=== PATIENT | male | born 1970 | race Caucasian/White ===

== ENCOUNTER 2020-05-11 12:48 | Inpatient (IN) | payer MEDICAID, SELFPAY ==
[~2020-05-11] VITALS: Ht 188 cm; Wt 80.7 kg
[2020-05-11 12:48] VITALS: BP_SYST 129
[2020-05-11 13:26] LABS: BASOPHILS # (AUTO) 0.1 K/uL (0.0-0.2); BASOPHILS % (AUTO) 0.3 % (0.0-2.0); EOSINOPHILS # (AUTO) 0.1 K/uL (0.0-0.4); EOSINOPHILS % (AUTO) 0.5 % (0.0-4.0); HEMATOCRIT 33.6 % (36-54); HEMOGLOBIN 11.1 g/dL (14.0-18.0); LYMPHOCYTES # (AUTO) 1.9 K/uL (1.0-5.5); LYMPHOCYTES % (AUTO) 8.6 % (20.5-51.5); MEAN CORPUSCULAR HEMOGLOBIN 27 pg (27-31); MEAN CORPUSCULAR HGB CONC 33 % (32-36); MEAN CORPUSCULAR VOLUME 82 fL (79.0-98.0); MONOCYTES # (AUTO) 1.2 K/uL (0.0-1.0); MONOCYTES % (AUTO) 5.5 % (1.7-9.3); NEUTROPHILS % (AUTO) 85.1 % (40.0-70.0); RED BLOOD CELL COUNT(AUTO) 4.09 MIL/uL (4.2-6.2); RED CELL DISTRIBUTION WIDTH 17.4 % (9.0-15.0); WHITE BLOOD COUNT (AUTO) 22.3 K/uL (4.8-10.8)
[2020-05-11 13:36] LABS: PLATELET COUNT (AUTO) 439 K/uL (130-430)
[2020-05-11 13:41] LABS: CALCIUM 8.2 mg/dL (8.4-11.0); CREATININE 0.99 mg/dL (0.55-1.30); POTASSIUM 4.1 mmol/L (3.5-5.1)
[2020-05-11 13:45] LABS: INR 1.2 (0.80-1.20); PROTHROMBIN TIME 12.3 SECS (9.5-12.5)
[2020-05-11 13:55] LABS: ALBUMIN 2.1 g/dL (3.4-4.8); TOTAL BILIRUBIN 1.1 mg/dL (0.0-1.0)
[2020-05-11] MEDS ORDERED: ONDANSETRON HCL 4 MG/2 ML VIAL IVP ONE (14:45)
[2020-05-11] MEDS ORDERED: MORPHINE 4 MG/ML INJ. SYRINGE IVP ONE (14:45)
[2020-05-11] MEDS ORDERED: PIPERACILLIN/TAZO 3.375 GM in NS 50 ML IV ONE (15:30)
[2020-05-11] MEDS ORDERED: ONDANSETRON HCL 4 MG/2 ML VIAL IVP PRN (16:00)
[2020-05-11] MEDS ORDERED: ZOLPIDEM TARTRATE 5 MG TABLET PO PRN (16:00)
[2020-05-11] MEDS ORDERED: DOCUSATE SODIUM 100 MG CAPSULE PO PRN (16:00)
[2020-05-11] MEDS ORDERED: MUPIROCIN 2% TOPICAL OINTMENT 22 GM NS PRN (16:00)
[2020-05-11] MEDS ORDERED: MAGNESIUM SULFATE 50 ML IV PRN (16:00)
[2020-05-11] MEDS ORDERED: ACETAMINOPHEN 325 MG TABLET PO PRN (16:00)
[2020-05-11] MEDS ORDERED: NALOXONE HCL 0.4 MG/ML AMP (NARCAN) IVP PRN ×2 (16:00)
[2020-05-11] MEDS ORDERED: POTASSIUM CHLORIDE 20 MEQ TAB.PRT.SR PO PRN (16:00)
[2020-05-11 16:52] VITALS: BP_SYST 139
[2020-05-11] MEDS: NACL 0.9% 1,000 ML IV SCH (16:52)
[2020-05-11] MEDS ORDERED: PIPERACILLIN/TAZOBACTAM 3.375 GM/VIAL (ZOSYN) IV ONE (17:00)
[2020-05-11] MEDS: PIPERACILLIN/TAZO 4.5GM/DEX-IS 100 ML IV SCH ×2 (17:00→22:00)
[2020-05-11 18:45] LABS: BARBITURATE, URINE NEGATIVE (NEG <=200); BENZODIAZEPINE, URINE NEGATIVE (NEG <=150); CANNABINOID, URINE NEGATIVE (NEG <=50); COCAINE, URINE NEGATIVE (NEG <=150); METHAMPHETAMINES SCREEN,URINE NEGATIVE (NEG <=500); OPIATE, URINE POSITIVE (NEG <=100); PHENCYCLIDINE SCREEN,URINE NEGATIVE (NEG <=25); UR TRICYCLIC ANTIDEPRESSANTS NEGATIVE (NEG <=300); URINE AMPHETAMINE NEGATIVE (NEG <=500); URINE METHADONE NEGATIVE (NEG <=200); URINE OXYCODONE SCREEN NEGATIVE (NEG <=100); URINE PROPOXYPHENE SCREEN NEGATIVE (NEG <=300)
[2020-05-11 20:00] VITALS: BP_SYST 125
[2020-05-11] MEDS: FLUCONAZOLE 200 mg/ NS 100 ML IV SCH (20:19)
[2020-05-11] MEDS: HEPARIN SODIUM,PORCINE 5,000 UNITS/ML VIAL SUBCUT SCH (20:28)
[2020-05-11] MEDS: LORazepam 2 MG/ML VIAL IVP PRN (22:09)
[2020-05-11] MEDS: MORPHINE 2 MG/ML INJ. SYRINGE IVP PRN (22:20)
[2020-05-12] VITALS: BP_SYST 100
[2020-05-12 00:59] VITALS: BP_SYST 100
[2020-05-12] MEDS: LORazepam 2 MG/ML VIAL IVP PRN (02:59)
[2020-05-12] MEDS: MORPHINE 2 MG/ML INJ. SYRINGE IVP PRN ×3 (03:03→21:49)
[2020-05-12] MEDS: NACL 0.9% 1,000 ML IV SCH ×3 (03:03→22:00)
[2020-05-12] MEDS: PIPERACILLIN/TAZO 4.5GM/DEX-IS 100 ML IV SCH ×3 (06:10→22:17)
[2020-05-12 07:03] LABS: BASOPHILS # (AUTO) 0.1 K/uL (0.0-0.2); BASOPHILS % (AUTO) 0.4 % (0.0-2.0); EOSINOPHILS # (AUTO) 0.1 K/uL (0.0-0.4); EOSINOPHILS % (AUTO) 0.5 % (0.0-4.0); HEMATOCRIT 32.4 % (36-54); HEMOGLOBIN 10.7 g/dL (14.0-18.0); LYMPHOCYTES # (AUTO) 1.8 K/uL (1.0-5.5); LYMPHOCYTES % (AUTO) 8.8 % (20.5-51.5); MEAN CORPUSCULAR HEMOGLOBIN 27 pg (27-31); MEAN CORPUSCULAR HGB CONC 33 % (32-36); MEAN CORPUSCULAR VOLUME 82 fL (79.0-98.0); MONOCYTES # (AUTO) 1.1 K/uL (0.0-1.0); MONOCYTES % (AUTO) 5.5 % (1.7-9.3); NEUTROPHILS # (AUTO) 17.6 K/uL (1.8-7.7); NEUTROPHILS % (AUTO) 84.8 % (40.0-70.0); PLATELET COUNT (AUTO) 449 K/uL (130-430); RED BLOOD CELL COUNT(AUTO) 3.93 MIL/uL (4.2-6.2); RED CELL DISTRIBUTION WIDTH 17.5 % (9.0-15.0); WHITE BLOOD COUNT (AUTO) 20.8 K/uL (4.8-10.8)
[2020-05-12 07:43] LABS: CALCIUM 7.9 mg/dL (8.4-11.0); CREATININE 1.13 mg/dL (0.55-1.30); POTASSIUM 5.1 mmol/L (3.5-5.1)
[2020-05-12] MEDS ORDERED: CYCLOBENZAPRINE HCL 10 MG TABLET (FLEXERIL) PO ONE (08:30)
[2020-05-12] MEDS ORDERED: DIATR MEGLU/DIATRIZ SOD 30 ML SOLUTION PO ONE (08:39)
[2020-05-12 08:57] VITALS: BP_SYST 119
[2020-05-12] MEDS: HEPARIN SODIUM,PORCINE 5,000 UNITS/ML VIAL SUBCUT SCH ×2 (09:06→21:50)
[2020-05-12] MEDS ORDERED: IOHEXOL 350 mgI/mL, 150 ML INFUS..BTL IV ONE (10:34)
[2020-05-12 12:15] VITALS: BP_SYST 130
[2020-05-12 16:04] VITALS: BP_SYST 126
[2020-05-12] MEDS: FLUCONAZOLE 200 mg/ NS 100 ML IV SCH (21:47)
[2020-05-13] MEDS: PIPERACILLIN/TAZO 4.5GM/DEX-IS 100 ML IV SCH ×3 (05:49→21:23)
[2020-05-13 07:20] LABS: CALCIUM 8.2 mg/dL (8.4-11.0); CREATININE 1.2 mg/dL (0.55-1.30); POTASSIUM 4.7 mmol/L (3.5-5.1)
[2020-05-13 07:22] LABS: BASOPHILS # (AUTO) 0.1 K/uL (0.0-0.2); BASOPHILS % (AUTO) 0.4 % (0.0-2.0); EOSINOPHILS # (AUTO) 0.1 K/uL (0.0-0.4); EOSINOPHILS % (AUTO) 0.4 % (0.0-4.0); HEMATOCRIT 34.6 % (36-54); LYMPHOCYTES % (AUTO) 8.9 % (20.5-51.5); MEAN CORPUSCULAR HEMOGLOBIN 27 pg (27-31); MEAN CORPUSCULAR HGB CONC 32 % (32-36); MEAN CORPUSCULAR VOLUME 84 fL (79.0-98.0); MONOCYTES # (AUTO) 1.3 K/uL (0.0-1.0); MONOCYTES % (AUTO) 5.6 % (1.7-9.3); NEUTROPHILS # (AUTO) 19.2 K/uL (1.8-7.7); NEUTROPHILS % (AUTO) 84.7 % (40.0-70.0); PLATELET COUNT (AUTO) 588 K/uL (130-430); RED BLOOD CELL COUNT(AUTO) 4.13 MIL/uL (4.2-6.2); RED CELL DISTRIBUTION WIDTH 17.7 % (9.0-15.0); WHITE BLOOD COUNT (AUTO) 22.7 K/uL (4.8-10.8)
[2020-05-13] MEDS: NACL 0.9% 1,000 ML IV SCH ×2 (08:30→17:54)
[2020-05-13] MEDS: LORazepam 2 MG/ML VIAL IVP PRN (08:33)
[2020-05-13 08:34] VITALS: BP_SYST 134
[2020-05-13] MEDS: HEPARIN SODIUM,PORCINE 5,000 UNITS/ML VIAL SUBCUT SCH ×2 (10:05→21:22)
[2020-05-13 12:05] VITALS: BP_SYST 125
[2020-05-13 16:16] VITALS: BP_SYST 148
[2020-05-13] MEDS: FLUCONAZOLE 200 mg/ NS 100 ML IV SCH (17:54)
[2020-05-13] MEDS: MORPHINE 2 MG/ML INJ. SYRINGE IVP PRN (18:12)
[2020-05-13 20:00] VITALS: BP_SYST 145
[2020-05-14] MEDS: NACL 0.9% 1,000 ML IV SCH ×2 (04:00→14:15)
[2020-05-14] MEDS: PIPERACILLIN/TAZO 4.5GM/DEX-IS 100 ML IV SCH ×3 (06:07→21:26)
[2020-05-14 06:38] LABS: BASOPHILS # (AUTO) 0.1 K/uL (0.0-0.2); BASOPHILS % (AUTO) 0.4 % (0.0-2.0); EOSINOPHILS # (AUTO) 0.1 K/uL (0.0-0.4); EOSINOPHILS % (AUTO) 0.5 % (0.0-4.0); HEMOGLOBIN 10.1 g/dL (14.0-18.0); LYMPHOCYTES # (AUTO) 1.9 K/uL (1.0-5.5); LYMPHOCYTES % (AUTO) 10.1 % (20.5-51.5); MEAN CORPUSCULAR HEMOGLOBIN 26 pg (27-31); MEAN CORPUSCULAR HGB CONC 32 % (32-36); MEAN CORPUSCULAR VOLUME 83 fL (79.0-98.0); MONOCYTES # (AUTO) 1.2 K/uL (0.0-1.0); MONOCYTES % (AUTO) 6.3 % (1.7-9.3); NEUTROPHILS # (AUTO) 15.5 K/uL (1.8-7.7); NEUTROPHILS % (AUTO) 82.7 % (40.0-70.0); PLATELET COUNT (AUTO) 582 K/uL (130-430); RED BLOOD CELL COUNT(AUTO) 3.85 MIL/uL (4.2-6.2); RED CELL DISTRIBUTION WIDTH 17.8 % (9.0-15.0); WHITE BLOOD COUNT (AUTO) 18.7 K/uL (4.8-10.8)
[2020-05-14] MEDS: LORazepam 2 MG/ML VIAL IVP PRN (08:21)
[2020-05-14] MEDS: HEPARIN SODIUM,PORCINE 5,000 UNITS/ML VIAL SUBCUT SCH ×2 (08:24→21:27)
[2020-05-14 08:26] VITALS: BP_SYST 128
[2020-05-14 08:48] LABS: CALCIUM 7.9 mg/dL (8.4-11.0); CREATININE 1.21 mg/dL (0.55-1.30); POTASSIUM 4.7 mmol/L (3.5-5.1)
[2020-05-14 12:00] VITALS: BP_SYST 135
[2020-05-14] MEDS: MORPHINE 2 MG/ML INJ. SYRINGE IVP PRN ×2 (12:22→19:54)
[2020-05-14 16:15] VITALS: BP_SYST 112
[2020-05-14] MEDS: FLUCONAZOLE 200 mg/ NS 100 ML IV SCH (19:49)
[2020-05-14 20:00] VITALS: BP_SYST 114
[2020-05-15] VITALS: BP_SYST 142
[2020-05-15] MEDS: MORPHINE 2 MG/ML INJ. SYRINGE IVP PRN ×3 (03:40→22:15)
[2020-05-15] MEDS: PIPERACILLIN/TAZO 4.5GM/DEX-IS 100 ML IV SCH ×3 (05:07→22:00)
[2020-05-15 06:16] LABS: BASOPHILS # (AUTO) 0.1 K/uL (0.0-0.2); BASOPHILS % (AUTO) 0.6 % (0.0-2.0); EOSINOPHILS # (AUTO) 0.1 K/uL (0.0-0.4); HEMATOCRIT 31.5 % (36-54); HEMOGLOBIN 10.1 g/dL (14.0-18.0); LYMPHOCYTES # (AUTO) 1.6 K/uL (1.0-5.5); LYMPHOCYTES % (AUTO) 11.3 % (20.5-51.5); MEAN CORPUSCULAR HEMOGLOBIN 27 pg (27-31); MEAN CORPUSCULAR HGB CONC 32 % (32-36); MEAN CORPUSCULAR VOLUME 83 fL (79.0-98.0); MONOCYTES % (AUTO) 6.5 % (1.7-9.3); NEUTROPHILS # (AUTO) 11.7 K/uL (1.8-7.7); NEUTROPHILS % (AUTO) 80.6 % (40.0-70.0); PLATELET COUNT (AUTO) 570 K/uL (130-430); RED BLOOD CELL COUNT(AUTO) 3.79 MIL/uL (4.2-6.2); RED CELL DISTRIBUTION WIDTH 16.7 % (9.0-15.0); WHITE BLOOD COUNT (AUTO) 14.6 K/uL (4.8-10.8)
[2020-05-15 06:50] LABS: CREATININE 1.12 mg/dL (0.55-1.30); POTASSIUM 4.2 mmol/L (3.5-5.1)
[2020-05-15 08:29] VITALS: BP_SYST 131
[2020-05-15] MEDS: HEPARIN SODIUM,PORCINE 5,000 UNITS/ML VIAL SUBCUT SCH ×2 (08:33→22:00)
[2020-05-15] MEDS: NACL 0.9% 1,000 ML IV SCH ×3 (10:09→20:00)
[2020-05-15 12:33] VITALS: BP_SYST 135
[2020-05-15 16:41] VITALS: BP_SYST 128
[2020-05-15 20:00] VITALS: BP_SYST 127
[2020-05-15] MEDS: FLUCONAZOLE 200 mg/ NS 100 ML IV SCH (21:57)
[2020-05-16 00:06] VITALS: BP_SYST 118
[2020-05-16] MEDS: NACL 0.9% 1,000 ML IV SCH ×3 (05:59→22:02)
[2020-05-16] MEDS: PIPERACILLIN/TAZO 4.5GM/DEX-IS 100 ML IV SCH ×3 (05:59→22:02)
[2020-05-16 07:10] LABS: BASOPHILS # (AUTO) 0.1 K/uL (0.0-0.2); BASOPHILS % (AUTO) 0.9 % (0.0-2.0); CALCIUM 8.2 mg/dL (8.4-11.0); CREATININE 1.09 mg/dL (0.55-1.30); EOSINOPHILS # (AUTO) 0.2 K/uL (0.0-0.4); EOSINOPHILS % (AUTO) 1.6 % (0.0-4.0); HEMATOCRIT 30.9 % (36-54); HEMOGLOBIN 10.2 g/dL (14.0-18.0); LYMPHOCYTES # (AUTO) 1.9 K/uL (1.0-5.5); LYMPHOCYTES % (AUTO) 14.8 % (20.5-51.5); MEAN CORPUSCULAR HEMOGLOBIN 27 pg (27-31); MEAN CORPUSCULAR HGB CONC 33 % (32-36); MEAN CORPUSCULAR VOLUME 82 fL (79.0-98.0); MONOCYTES # (AUTO) 0.8 K/uL (0.0-1.0); MONOCYTES % (AUTO) 6.5 % (1.7-9.3); NEUTROPHILS # (AUTO) 9.7 K/uL (1.8-7.7); NEUTROPHILS % (AUTO) 76.2 % (40.0-70.0); PLATELET COUNT (AUTO) 575 K/uL (130-430); POTASSIUM 4.4 mmol/L (3.5-5.1); RED BLOOD CELL COUNT(AUTO) 3.76 MIL/uL (4.2-6.2); RED CELL DISTRIBUTION WIDTH 17.6 % (9.0-15.0); WHITE BLOOD COUNT (AUTO) 12.7 K/uL (4.8-10.8)
[2020-05-16 08:00] VITALS: BP_SYST 135
[2020-05-16] MEDS: LORazepam 2 MG/ML VIAL IVP PRN (08:13)
[2020-05-16] MEDS: HEPARIN SODIUM,PORCINE 5,000 UNITS/ML VIAL SUBCUT SCH ×2 (08:14→20:03)
[2020-05-16 12:00] VITALS: BP_SYST 126
[2020-05-16 15:40] VITALS: BP_SYST 111
[2020-05-16 20:00] VITALS: BP_SYST 121
[2020-05-16] MEDS: FLUCONAZOLE 200 mg/ NS 100 ML IV SCH (20:03)
[2020-05-16] MEDS: MORPHINE 2 MG/ML INJ. SYRINGE IVP PRN (22:05)
[2020-05-17 04:00] VITALS: BP_SYST 126
[2020-05-17] MEDS: MORPHINE 2 MG/ML INJ. SYRINGE IVP PRN ×3 (04:12→23:29)
[2020-05-17] MEDS: PIPERACILLIN/TAZO 4.5GM/DEX-IS 100 ML IV SCH ×3 (06:12→23:20)
[2020-05-17 06:30] LABS: BASOPHILS # (AUTO) 0.1 K/uL (0.0-0.2); BASOPHILS % (AUTO) 0.6 % (0.0-2.0); EOSINOPHILS # (AUTO) 0.2 K/uL (0.0-0.4); EOSINOPHILS % (AUTO) 1.8 % (0.0-4.0); HEMATOCRIT 29.6 % (36-54); HEMOGLOBIN 9.7 g/dL (14.0-18.0); LYMPHOCYTES # (AUTO) 1.8 K/uL (1.0-5.5); LYMPHOCYTES % (AUTO) 15.5 % (20.5-51.5); MEAN CORPUSCULAR HEMOGLOBIN 27 pg (27-31); MEAN CORPUSCULAR HGB CONC 33 % (32-36); MEAN CORPUSCULAR VOLUME 82 fL (79.0-98.0); MONOCYTES # (AUTO) 0.8 K/uL (0.0-1.0); MONOCYTES % (AUTO) 6.5 % (1.7-9.3); NEUTROPHILS # (AUTO) 8.8 K/uL (1.8-7.7); NEUTROPHILS % (AUTO) 75.6 % (40.0-70.0); PLATELET COUNT (AUTO) 505 K/uL (130-430); RED BLOOD CELL COUNT(AUTO) 3.61 MIL/uL (4.2-6.2); RED CELL DISTRIBUTION WIDTH 17.1 % (9.0-15.0); WHITE BLOOD COUNT (AUTO) 11.7 K/uL (4.8-10.8)
[2020-05-17 06:39] LABS: CREATININE 1.04 mg/dL (0.55-1.30); POTASSIUM 4.4 mmol/L (3.5-5.1)
[2020-05-17 08:46] VITALS: BP_SYST 115
[2020-05-17] MEDS: HEPARIN SODIUM,PORCINE 5,000 UNITS/ML VIAL SUBCUT SCH ×2 (09:31→21:20)
[2020-05-17] MEDS: NACL 0.9% 1,000 ML IV SCH ×2 (12:05→21:07)
[2020-05-17 12:36] VITALS: BP_SYST 117
[2020-05-17 17:02] VITALS: BP_SYST 120
[2020-05-17 20:00] VITALS: BP_SYST 137
[2020-05-17] MEDS: FLUCONAZOLE 200 mg/ NS 100 ML IV SCH (21:07)
[2020-05-17 23:48] VITALS: BP_SYST 118
[2020-05-18] MEDS: NACL 0.9% 1,000 ML IV SCH (06:34)
[2020-05-18] MEDS: PIPERACILLIN/TAZO 4.5GM/DEX-IS 100 ML IV SCH (06:34)
[2020-05-18 07:00] LABS: BASOPHILS # (AUTO) 0.1 K/uL (0.0-0.2); BASOPHILS % (AUTO) 1.1 % (0.0-2.0); EOSINOPHILS # (AUTO) 0.2 K/uL (0.0-0.4); EOSINOPHILS % (AUTO) 2.1 % (0.0-4.0); HEMATOCRIT 30.5 % (36-54); HEMOGLOBIN 10.2 g/dL (14.0-18.0); LYMPHOCYTES # (AUTO) 1.9 K/uL (1.0-5.5); LYMPHOCYTES % (AUTO) 17.6 % (20.5-51.5); MEAN CORPUSCULAR HEMOGLOBIN 28 pg (27-31); MEAN CORPUSCULAR HGB CONC 33 % (32-36); MEAN CORPUSCULAR VOLUME 83 fL (79.0-98.0); MONOCYTES # (AUTO) 0.8 K/uL (0.0-1.0); NEUTROPHILS # (AUTO) 7.8 K/uL (1.8-7.7); NEUTROPHILS % (AUTO) 72.2 % (40.0-70.0); PLATELET COUNT (AUTO) 482 K/uL (130-430); RED BLOOD CELL COUNT(AUTO) 3.68 MIL/uL (4.2-6.2); RED CELL DISTRIBUTION WIDTH 17.2 % (9.0-15.0); WHITE BLOOD COUNT (AUTO) 10.8 K/uL (4.8-10.8)
[2020-05-18 07:11] LABS: CALCIUM 8.6 mg/dL (8.4-11.0); CREATININE 1.02 mg/dL (0.55-1.30); POTASSIUM 4.3 mmol/L (3.5-5.1)
[2020-05-18] MEDS ORDERED: LACT1CAP61 PO (08:28)
[2020-05-18] MEDS ORDERED: AMOX-426 PO (08:28)
[2020-05-18] MEDS ORDERED: METR500T PO (08:28)
[2020-05-18] MEDS: HEPARIN SODIUM,PORCINE 5,000 UNITS/ML VIAL SUBCUT SCH (08:48)
[2020-05-18 09:16] VITALS: BP_SYST 114
[2020-05-18 09:36] VITALS: BP_SYST 114
[2020-05-18 11:42] VITALS: BP_SYST 116
[2020-05-18 11:53] VITALS: BP_SYST 130
== END 2020-05-18 12:35 | disposition home or self-care (01) | DRG 720 ==
LOC: SED 12:48 → SMU 15:28
PROVIDERS: ADMIT General Practice; ATTEND General Practice
DX: A41.9 Sepsis, unspecified organism (principal); E44.1 Mild protein-calorie malnutrition; E87.1 Hypo-osmolality and hyponatremia; K65.9 Peritonitis, unspecified; J90 Pleural effusion, not elsewhere classified; J18.9 Pneumonia, unspecified organism; F14.10 Cocaine abuse, uncomplicated; F15.10 Other stimulant abuse, uncomplicated; F12.10 Cannabis abuse, uncomplicated; L02.211 Cutaneous abscess of abdominal wall; R18.8 Other ascites; K57.90 Diverticulosis of intestine, part unspecified, without perforation or abscess without bleeding; Z20.822 Contact with and (suspected) exposure to COVID-19; Z90.49 Acquired absence of other specified parts of digestive tract; Z88.6 Allergy status to analgesic agent; Z91.19 Patient's noncompliance with other medical treatment and regimen; Z68.22 Body mass index [BMI] 22.0-22.9, adult; K81.0 Acute cholecystitis; K82.A1 Gangrene of gallbladder in cholecystitis
CPT/HCPCS: 36415; 71045; 71275; 76376; 76604; 76700-TC; 80048; 80053; 80307; 82550-TC; 83036; 83605; 83735-TC; 84484; 85025; 85610-TC; 85730-TC; 87040-TC; 87081; 93005; 94010; 96374; 96375; J1450; J1644; J2060; J2270; J2405; J2543; Q9964; Q9967

== ENCOUNTER 2021-09-05 14:39 | Emergency (ER) | payer MEDICAID ==
[~2021-09-05] VITALS: Ht 188 cm; Wt 104.8 kg
[~2021-09-05 14:39] MED LIST: HYDR-3917 PO; INDO-12 PO; LACT1CAP61 PO; ROCPM1 IV
[2021-09-05 14:47] VITALS: BP_SYST 123
[2021-09-05 16:07] LABS: BASOPHILS # (AUTO) 0.1 K/uL (0.0-0.2); BASOPHILS % (AUTO) 0.9 % (0.0-2.0); EOSINOPHILS # (AUTO) 0.4 K/uL (0.0-0.4); EOSINOPHILS % (AUTO) 2.8 % (0.0-4.0); HEMATOCRIT 44.2 % (36-54); HEMOGLOBIN 15.3 g/dL (14.0-18.0); LYMPHOCYTES # (AUTO) 3.4 K/uL (1.0-5.5); LYMPHOCYTES % (AUTO) 25.1 % (20.5-51.5); MEAN CORPUSCULAR HEMOGLOBIN 29 pg (27-31); MEAN CORPUSCULAR HGB CONC 35 % (32-36); MEAN CORPUSCULAR VOLUME 83 fL (79.0-98.0); MONOCYTES % (AUTO) 7.5 % (1.7-9.3); NEUTROPHILS # (AUTO) 8.7 K/uL (1.8-7.7); NEUTROPHILS % (AUTO) 63.7 % (40.0-70.0); PLATELET COUNT (AUTO) 204 K/uL (130-430); RED CELL DISTRIBUTION WIDTH 14.7 % (9.0-15.0); WHITE BLOOD COUNT (AUTO) 13.7 K/uL (4.8-10.8)
[2021-09-05 16:13] LABS: CALCIUM 9.2 mg/dL (8.4-11.0); CREATININE 1.2 mg/dL (0.55-1.30); POTASSIUM 4.4 mmol/L (3.5-5.1)
[2021-09-05 16:17] LABS: C-REACTIVE PROTEIN QUANT 2.7 mg/dL (0-0.5); TOTAL BILIRUBIN 0.5 mg/dL (0.0-1.0); URIC ACID 7.5 mg/dL (2.4-7.0)
[2021-09-05] MEDS ORDERED: MORPHINE SULFATE 10 MG/ML VIAL IM ONE (16:45)
[2021-09-05] MEDS ORDERED: IBUP-1971 PO (16:45)
[2021-09-05] MEDS ORDERED: TRAM50TA2 PO (16:45)
[2021-09-05 17:21] LABS: ERYTHROCYTE SEDIMENTATION RATE 40 MM/HR (0-15)
[2021-09-05 17:49] VITALS: BP_SYST 124
== END 2021-09-05 16:01 | disposition home or self-care (01) ==
LOC: SED 14:39
DX: M25.462 Effusion, left knee (principal); Z88.6 Allergy status to analgesic agent; Z79.899 Other long term (current) drug therapy
CPT/HCPCS: 36415; 73564; 80053; 84550; 85025; 85651; 86140; 96372; 99284; J2270

== ENCOUNTER 2021-09-12 08:10 | Emergency (ER) | payer MEDICAID ==
[~2021-09-12] VITALS: Ht 188 cm; Wt 104.3 kg
[~2021-09-12 08:10] MED LIST changes: +IBUP-1971 PO; +TRAM50TA2 PO
[2021-09-12 08:16] VITALS: BP_SYST 135
--- NOTE | 2021-09-12 08:26 | NUR ---
Pt placed in bed #6 coming from home ambulatory with steady gait. Pt is A&Ox4. Skin intact. pt c/o wound check where he stated he came to get his left upper arm PICC line removed. PICC line is intact with no s/s of infection. Pt has no pain. NKA. States he has no known medical conditions. VSS. Bed in lowest position.
--- NOTE | 2021-09-12 08:27 | NUR ---
ER at bedside examining patient.
[2021-09-12] MEDS ORDERED: BACITRACIN 1 GM OINT TP ONE (08:45)
--- NOTE | 2021-09-12 08:55 | NUR ---
Dr. Mata removed PICC line. No active bleeding present. Pt has no c/o. Cleansed wound and covered wound with bacitracin and dressing.
--- NOTE | 2021-09-12 09:03 | NUR ---
Patient given written and verbal discharge instructions and verbalizes understanding. ER MD discussed with patient the results and treatment provided. Patient in stable condition. ID arm band removed. Patient educated on pain management and to follow up with PMD. Pain Scale 0/10. Opportunity for questions provided and answered. Medication side effect fact sheet provided.
[2021-09-12 09:05] VITALS: BP_SYST 154
== END 2021-09-12 09:03 | disposition home or self-care (01) ==
LOC: SED 08:10
DX: Z45.2 Encounter for adjustment and management of vascular access device (principal)
CPT/HCPCS: 99282

== ENCOUNTER 2022-04-28 05:36 | Inpatient (IN) | payer MEDICAID ==
[~2022-04-28] VITALS: Ht 193 cm; Wt 108.4 kg
[2022-04-28 05:51] VITALS: BP_SYST 160
--- NOTE | 2022-04-28 05:58 | NUR ---
pt placed in bed 8. placed on monitor.
[2022-04-28] MEDS ORDERED: MORPHINE 4 MG INJ. 4 MG/ML VIAL IVP ONE (06:30)
[2022-04-28] MEDS ORDERED: NACL 0.9% 2,000 ML IV ONE (06:30)
[2022-04-28 06:53] LABS: BASOPHILS % (AUTO) 0.5 % (0.0-2.0); EOSINOPHILS # (AUTO) 0.2 K/uL (0.0-0.4); EOSINOPHILS % (AUTO) 2.5 % (0.0-4.0); HEMATOCRIT 43.8 % (36-54); HEMOGLOBIN 15.5 g/dL (14.0-18.0); LYMPHOCYTES # (AUTO) 1.7 K/uL (1.0-5.5); LYMPHOCYTES % (AUTO) 20.6 % (20.5-51.5); MEAN CORPUSCULAR HEMOGLOBIN 30 pg (27-31); MEAN CORPUSCULAR HGB CONC 36 % (32-36); MEAN CORPUSCULAR VOLUME 85 fL (79.0-98.0); MONOCYTES # (AUTO) 0.4 K/uL (0.0-1.0); MONOCYTES % (AUTO) 4.3 % (1.7-9.3); NEUTROPHILS # (AUTO) 5.9 K/uL (1.8-7.7); NEUTROPHILS % (AUTO) 72.1 % (40.0-70.0); PLATELET COUNT (AUTO) 125 K/uL (130-430); RED BLOOD CELL COUNT(AUTO) 5.15 MIL/uL (4.2-6.2); RED CELL DISTRIBUTION WIDTH 15.3 % (9.0-15.0); WHITE BLOOD COUNT (AUTO) 8.2 K/uL (4.8-10.8)
--- NOTE | 2022-04-28 07:00 | NUR ---
ER at bedside examining patient.
[2022-04-28 07:11] LABS: CALCIUM 9.1 mg/dL (8.4-11.0); CREATININE 1.09 mg/dL (0.55-1.30)
--- NOTE | 2022-04-28 07:12 | NUR ---
Report given to JOSS Booker.
[2022-04-28 07:15] LABS: ALBUMIN 4.2 g/dL (3.4-4.8); TOTAL BILIRUBIN 0.6 mg/dL (0.0-1.0)
--- NOTE | 2022-04-28 07:30 | NUR ---
NS0.9% BOLUS STARTED. PT DENIES PAIN. NO URINE SAMPLE YET. URINAL GIVEN TO PT AND ENCOURAGE PT TO PEE FOR URINE SAMPLE.
--- NOTE | 2022-04-28 08:27 | NUR ---
NOTIFIED ED ADMITTING, ORTIZ, REGARDING DR. JONES'S REQUEST FOR ADMISSION. PER DR. JONES, PT IS NOT STABLE FOR TRANSFER. WILL CONTACT TOURIST CABIN KEEPER REGARDING THIS MATTER. PER FACESHEET: [facility]
[2022-04-28] MEDS ORDERED: CEFEPIME 2 GM in D5W 100 ML IV ONE (08:45)
[2022-04-28 08:53] LABS: BILIRUBIN,URINE NEGATIVE (NEGATIVE); BLOOD, URINE 1+ (NEGATIVE); CLARITY/URINE CLEAR (CLEAR); COLOR,URINE YELLOW (YELLOW); GLUCOSE,URINE NEGATIVE (NEGATIVE); KETONES,URINE NEGATIVE (NEGATIVE); LEUKOCYTE ESTERASE ,URINE NEGATIVE (NEGATIVE); NITRITE, URINE NEGATIVE (NEGATIVE); PROTEIN URINE 1+ (NEGATIVE); UROBILINOGEN,URINE 0.2 (0.2-1.0)
--- NOTE | 2022-04-28 08:55 | NUR ---
Admit bed requested Patient will be admitted to care of . CONSULT DR. ULRICH. Admitted to M/S unit. Diagnosis ACUTE APPENDECITIS Inpatient (Yes) Observation (No) Orientation concerns or request close to nursing station (No) Covid Status NEG On vent or bipap NO Isolation requirements NO Needs a sitter NO From Home (Yes) Requires Dialysis (No) Med Rec Completed YES
--- NOTE | 2022-04-28 09:04 | NUR ---
CONSENT FOR LAPAROSCOPIC APPNEDECTOMY, POSSIBLE OPEN SIGNED BY PT HIMSELF.
--- NOTE | 2022-04-28 09:45 | NUR ---
DR. SANTANA CALLED IN AND TALKED WITH DR. JONES. SURGEON, DR. ULRICH CAME TO VISIT PT.
[2022-04-28 09:48] LABS: BACTERIA,URINE FEW /HPF (None Seen); MUCUS,URINE 1+ /LPF (None Seen); RBC,URINE 0-3 /HPF (0-3); WBC,URINE 0-3 /HPF (0-3)
--- NOTE | 2022-04-28 10:14 | NUR ---
OR TEAM CAME TO PICKUP PT FOR THE SURGERY NOW.
[2022-04-28] MEDS ORDERED: MIDAZOLAM HCL 2 MG/2 ML VIAL (VERSED) ONE (10:31)
[2022-04-28] MEDS ORDERED: ONDANSETRON HCL 4 MG/2 ML VIAL ONE (10:31)
[2022-04-28] MEDS ORDERED: ROCURONIUM BROMIDE 10 MG/ML (ZEMURON) ONE (10:31)
[2022-04-28] MEDS ORDERED: LR 1,000 ML IV.SOLN IV ONE (10:31)
[2022-04-28] MEDS ORDERED: BUPIVACAINE /EPINEPHRINE/PF 0.5% 30 ML VIAL INJ ONE (10:31)
[2022-04-28] MEDS ORDERED: LIDOCAINE 2%, 20 ML MDV ONE (10:31)
[2022-04-28] MEDS ORDERED: GLYCOPYRROLATE 0.2 MG/ML VIAL ONE (10:31)
[2022-04-28] MEDS ORDERED: DEXAMETHASONE SOD PHOSPHATE 4 MG/ML VIAL ONE (10:31)
[2022-04-28] MEDS ORDERED: NS 1000 ML IV.SOLN IV ONE (10:31)
[2022-04-28] MEDS ORDERED: fentaNYL CITRATE/PF 100 MCG/2 ML AMP ONE (10:31)
[2022-04-28] MEDS ORDERED: NS IRRIG SOLN 1000 ML IR ONE (10:31)
[2022-04-28] MEDS ORDERED: NEOSTIGMINE METHYLSULFATE 1 MG/ML, 10 ML VIAL ONE (10:31)
[2022-04-28] MEDS ORDERED: PHENYLEPHRINE HCL 10 MG/ML VIAL (NEOSYNEPHRINE) ONE (10:31)
[2022-04-28] MEDS ORDERED: SEVOFLURANE 15 MIN GAS INH ONE (10:31)
[2022-04-28] MEDS ORDERED: SUCCINYLCHOLINE CHLORIDE 20 MG/ML(QUELICIN) ONE (10:31)
[2022-04-28] MEDS ORDERED: PROPOFOL 200MG/ 20ML VIAL (DIPRIVAN) IV ONE (10:31)
[2022-04-28] MEDS ORDERED: METOCLOPRAMIDE HCL 10 MG/2 ML VIAL ONE (10:31)
[2022-04-28] MEDS ORDERED: cefTRIAXone 1 GM IVPB PREMIX 50 ML IV SCH (11:15)
[2022-04-28] MEDS ORDERED: NALOXONE HCL 0.4 MG/ML AMP (NARCAN) IVP PRN ×2 (11:15→11:45)
[2022-04-28] MEDS ORDERED: traMADol HCL HCL 50 MG TABLET (ULTRAM) PO PRN (11:15)
[2022-04-28] MEDS ORDERED: ONDANSETRON HCL 4 MG/2 ML VIAL IVP PRN ×2 (11:45→12:45)
[2022-04-28] MEDS ORDERED: LORazepam 2 MG/ML VIAL IVP PRN (12:45)
[2022-04-28] MEDS ORDERED: MORPHINE 4 MG INJ. 4 MG/ML VIAL IVP PRN (12:45)
[2022-04-28 12:51] VITALS: BP_SYST 111
[2022-04-28] MEDS: HYDROmorphone 1 MG/ML INJ. CARTRIDGE IVP PRN ×2 (13:08→21:04)
[2022-04-28] MEDS ORDERED: cloNIDine HCL 0.2 MG TABLET PO PRN (13:15)
--- NOTE | 2022-04-28 13:30 | NUR ---
ADMISSION NOTE Received patient from [facility] via [facility]. Patient admitted with diagnosis of acute appendicitis, postop laparoscopic and appendectomy. Patient is awake, drowsy,oriented X 4. Respiration even and unlabored oxygen saturation 98% on 2L nasal cannula, no signs of distress noted. Complain of mild pain to mid abdomen, abdomen round and soft with positive bowel sounds. Right mid and lower quadrants 4 gauze dressing intact, no leaking. ALBERTA drain to RUQ red in color intact. Patient voided per report. IV infusing to right wrist patent. Patient oriented to hospital room, pain management and safety-teach back done. Personal belongings checked and Belongings List documented. Safety precaution secured, bed in low position and call all light within reach, will continue to monitor patient
[2022-04-28] MEDS: D5/0.45 NS 1,000 ML IV SCH ×2 (13:42→23:00)
[2022-04-28] MEDS: CEFAZOLIN 2 GM IVPB PREMIX 50 ML IV SCH ×2 (14:01→21:08)
[2022-04-28] MEDS: metroNIDAZOLE 500 mg/NS 100 ML IV SCH ×2 (14:46→21:09)
[2022-04-28] MEDS ORDERED: INDOMETHACIN 25 MG CAPSULE(INDOCIN) PO SCH (15:00)
--- NOTE | 2022-04-28 15:00 | NUR ---
Instruct patient to use incentive spirometry 10 time per hour for lungs expansion, patient verbalizes understanding and return demonstration
[2022-04-28 16:55] VITALS: BP_SYST 90
[2022-04-28] MEDS: PIPERACILLIN/TAZO 3.375/DEX-IS 50 ML IV SCH ×2 (17:06→23:31)
[2022-04-28 19:00] VITALS: BP_SYST 98
[2022-04-28 20:00] VITALS: BP_SYST 98
[2022-04-28] MEDS: LACTOBACILLUS RHAMNOSUS GG 1 CAP CAPSULE PO SCH (21:07)
[2022-04-28] MEDS: TEMAZEPAM 15 MG CAPSULE PO SCH (21:08)
[2022-04-29] VITALS: BP_SYST 101
[2022-04-29] MEDS: HYDROmorphone 1 MG/ML INJ. CARTRIDGE IVP PRN ×5 (01:50→21:44)
[2022-04-29] MEDS: PIPERACILLIN/TAZO 3.375/DEX-IS 50 ML IV SCH ×2 (04:56→13:00)
--- NOTE | 2022-04-29 07:30 | NUR ---
RECEIVED REPORT FROM PM NURSE. PT IS RESTING IN BED, RESPIRATIONS EVEN AND UL ON 2LNC, NO C/O PAIN AT THIS TIME. ALBERTA DRAIN TO RLQ ABD, RED DRAINAGE NOTED. 4 ABD INCISIONS NOTED, 3 DRESSINGS CDI, ALBERTA DRESSING NOTED WITH DRIED BLOOD. ABD SOFT AND ROUND, HYPOACTIVE BS NOTED. PT DENIES N/V/D. CALL LIGHT IN REACH, WILL CONT TO MONITOR.
[2022-04-29 07:39] LABS: BASOPHILS % (AUTO) 0.1 % (0.0-2.0); HEMATOCRIT 33.1 % (36-54); LYMPHOCYTES # (AUTO) 1.9 K/uL (1.0-5.5); LYMPHOCYTES % (AUTO) 8.9 % (20.5-51.5); MEAN CORPUSCULAR HEMOGLOBIN 29 pg (27-31); MEAN CORPUSCULAR HGB CONC 33 % (32-36); MEAN CORPUSCULAR VOLUME 89 fL (79.0-98.0); MONOCYTES # (AUTO) 1.7 K/uL (0.0-1.0); MONOCYTES % (AUTO) 7.9 % (1.7-9.3); NEUTROPHILS # (AUTO) 17.8 K/uL (1.8-7.7); NEUTROPHILS % (AUTO) 83.1 % (40.0-70.0); PLATELET COUNT (AUTO) 162 K/uL (130-430); RED BLOOD CELL COUNT(AUTO) 3.72 MIL/uL (4.2-6.2); RED CELL DISTRIBUTION WIDTH 15.1 % (9.0-15.0); WHITE BLOOD COUNT (AUTO) 21.4 K/uL (4.8-10.8)
[2022-04-29 07:57] LABS: ALBUMIN 3.2 g/dL (3.4-4.8); CALCIUM 7.7 mg/dL (8.4-11.0); CREATININE 2.9 mg/dL (0.55-1.30); TOTAL BILIRUBIN 0.5 mg/dL (0.0-1.0)
[2022-04-29] MEDS: THIAMINE HCL 100 MG TABLET GT SCH (09:50)
[2022-04-29] MEDS: FOLIC ACID 1 MG TABLET PO SCH (09:50)
[2022-04-29] MEDS: LACTOBACILLUS RHAMNOSUS GG 1 CAP CAPSULE PO SCH ×2 (09:50→21:44)
[2022-04-29] MEDS: D5/0.45 NS 1,000 ML IV SCH ×3 (09:56→21:45)
[2022-04-29 11:21] VITALS: BP_SYST 110
--- NOTE | 2022-04-29 13:30 | NUR ---
PATIENT VOIDED 350ML TABBY URINE. PT RESTING IN BED, AAO x4, VITAL SIGNS WNL. ALBERTA NOTED WITH RED DRAINAGE. NO SIGNIFICANT CHANGES NOTED. CALL LIGHT IN REACH.
[2022-04-29 14:14] LABS: BILIRUBIN,URINE NEGATIVE (NEGATIVE); BLOOD, URINE 1+ (NEGATIVE); COLOR,URINE YELLOW (YELLOW); GLUCOSE,URINE NEGATIVE (NEGATIVE); KETONES,URINE 1+ (NEGATIVE); LEUKOCYTE ESTERASE ,URINE NEGATIVE (NEGATIVE); NITRITE, URINE NEGATIVE (NEGATIVE); PH,URINE 5.5 (5.0-8.0); PROTEIN URINE 1+ (NEGATIVE); UROBILINOGEN,URINE 0.2 (0.2-1.0)
[2022-04-29 14:20] LABS: BACTERIA,URINE MODERATE /HPF (None Seen); CLARITY/URINE HAZY (CLEAR); MUCUS,URINE 1+ /LPF (None Seen); RBC,URINE 0-3 /HPF (0-3)
[2022-04-29 14:41] LABS: BASOPHILS % (AUTO) 0.2 % (0.0-2.0); EOSINOPHILS % (AUTO) 0.1 % (0.0-4.0); HEMOGLOBIN 9.5 g/dL (14.0-18.0); LYMPHOCYTES # (AUTO) 2.8 K/uL (1.0-5.5); LYMPHOCYTES % (AUTO) 14.4 % (20.5-51.5); MEAN CORPUSCULAR HEMOGLOBIN 30 pg (27-31); MEAN CORPUSCULAR HGB CONC 34 % (32-36); MEAN CORPUSCULAR VOLUME 88 fL (79.0-98.0); MONOCYTES # (AUTO) 1.7 K/uL (0.0-1.0); MONOCYTES % (AUTO) 8.4 % (1.7-9.3); NEUTROPHILS # (AUTO) 15.2 K/uL (1.8-7.7); NEUTROPHILS % (AUTO) 76.9 % (40.0-70.0); PLATELET COUNT (AUTO) 151 K/uL (130-430); RED BLOOD CELL COUNT(AUTO) 3.19 MIL/uL (4.2-6.2); WHITE BLOOD COUNT (AUTO) 19.8 K/uL (4.8-10.8)
[2022-04-29 14:56] LABS: PROTHROMBIN TIME 10.6 SECS (9.5-12.5)
[2022-04-29] MEDS: cefTRIAXone 1 GM in D5W 50 ML IV SCH (15:08)
--- NOTE | 2022-04-29 15:24 | NUR ---
PT IS A TELE PATIENT, PER ENVIRONMENTAL AIDSAMPSON POOLE RN WILL TAKE OVER CARE OF PATIENT. REPORT GIVEN TO SAMSPON FOR CONTINUITY OF CARE.
[2022-04-29 15:57] LABS: CALCIUM 7.5 mg/dL (8.4-11.0); CREATININE 3.75 mg/dL (0.55-1.30)
[2022-04-29 16:17] LABS: ALBUMIN 3.2 g/dL (3.4-4.8); TOTAL BILIRUBIN 0.6 mg/dL (0.0-1.0)
[2022-04-29 16:45] VITALS: BP_SYST 113
--- NOTE | 2022-04-29 16:50 | NUR ---
Batisat cath in place.400ml clear yellow output. well tolerated.
--- NOTE | 2022-04-29 17:16 | NUR ---
CONSULTATION PAGED REASON FOR CONSULTATION: CORKY WAS CONSULT CALLED? Y PERSON WHO WAS NOTIFIED: KYLAH MONTANO CONSULTING PHYSICIAN: KYLAH VALDOVINOS FRACTIONATION SUPERVISOR SPECIALTY: NEPHRO FRACTIONATION SUPERVISOR PHONE NUMBER: [phone] REQUESTING PHYSICIAN: [facility], [facility]
[2022-04-29 17:18] VITALS: BP_SYST 117
--- NOTE | 2022-04-29 19:30 | NUR ---
Handoff given to FUNMI
[2022-04-29 20:00] VITALS: BP_SYST 124
--- NOTE | 2022-04-29 20:10 | NUR ---
DR PEREZ CALLED AND UPDATED ON CT ABD RESULTS. RESULTS READ TO MD OVER PHONE. DR. PEREZ SAID TO CALL WITH H/H RESULTS AFTER 1999 TONIGHT
[2022-04-29 20:23] LABS: BARBITURATE, URINE NEGATIVE (NEG <=200); BENZODIAZEPINE, URINE POSITIVE (NEG <=150); CANNABINOID, URINE NEGATIVE (NEG <=50); COCAINE, URINE POSITIVE (NEG <=150); METHAMPHETAMINES SCREEN,URINE NEGATIVE (NEG <=500); OPIATE, URINE POSITIVE (NEG <=100); PHENCYCLIDINE SCREEN,URINE NEGATIVE (NEG <=25); UR TRICYCLIC ANTIDEPRESSANTS NEGATIVE (NEG <=300); URINE AMPHETAMINE NEGATIVE (NEG <=500); URINE METHADONE NEGATIVE (NEG <=200); URINE OXYCODONE SCREEN NEGATIVE (NEG <=100); URINE PROPOXYPHENE SCREEN NEGATIVE (NEG <=300)
[2022-04-29] MEDS: TEMAZEPAM 15 MG CAPSULE PO SCH (21:44)
[2022-04-29 21:53] LABS: CALCIUM 7.6 mg/dL (8.4-11.0); CREATININE 3.2 mg/dL (0.55-1.30)
[2022-04-30 00:19] VITALS: BP_SYST 97
[2022-04-30 02:14] LABS: BASOPHILS % (AUTO) 0.2 % (0.0-2.0); EOSINOPHILS % (AUTO) 0.3 % (0.0-4.0); HEMATOCRIT 23.1 % (36-54); HEMOGLOBIN 7.9 g/dL (14.0-18.0); LYMPHOCYTES % (AUTO) 15.4 % (20.5-51.5); MEAN CORPUSCULAR HEMOGLOBIN 29 pg (27-31); MEAN CORPUSCULAR HGB CONC 34 % (32-36); MEAN CORPUSCULAR VOLUME 86 fL (79.0-98.0); MONOCYTES # (AUTO) 1.2 K/uL (0.0-1.0); MONOCYTES % (AUTO) 9.2 % (1.7-9.3); NEUTROPHILS # (AUTO) 9.5 K/uL (1.8-7.7); NEUTROPHILS % (AUTO) 74.9 % (40.0-70.0); PLATELET COUNT (AUTO) 110 K/uL (130-430); RED BLOOD CELL COUNT(AUTO) 2.69 MIL/uL (4.2-6.2); RED CELL DISTRIBUTION WIDTH 15.5 % (9.0-15.0); WHITE BLOOD COUNT (AUTO) 12.7 K/uL (4.8-10.8)
[2022-04-30] MEDS: D5/0.45 NS 1,000 ML IV SCH ×4 (02:15→20:54)
--- NOTE | 2022-04-30 03:26 | NUR ---
DR PEREZ UPDATED ON PT H/H REQUESTED AT BEGINNING OF SHIFT. LATEST H/H 7.9/23.1. DR. PEREZ SAID TO CONTINUE TO MONITOR LEVELS AND TRANSFUSE ORDERED IF H/H DROPS BELOW 7.0
[2022-04-30 04:39] VITALS: BP_SYST 121
[2022-04-30] MEDS: HYDROmorphone 1 MG/ML INJ. CARTRIDGE IVP PRN ×2 (04:39→08:52)
--- NOTE | 2022-04-30 07:07 | NUR ---
TOTAL ALBERTA DRAIN OUTPUT 140ML
[2022-04-30 07:23] LABS: BASOPHILS % (AUTO) 0.3 % (0.0-2.0); EOSINOPHILS # (AUTO) 0.1 K/uL (0.0-0.4); EOSINOPHILS % (AUTO) 0.4 % (0.0-4.0); HEMATOCRIT 23.3 % (36-54); LYMPHOCYTES # (AUTO) 1.8 K/uL (1.0-5.5); LYMPHOCYTES % (AUTO) 15.5 % (20.5-51.5); MEAN CORPUSCULAR HEMOGLOBIN 30 pg (27-31); MEAN CORPUSCULAR HGB CONC 35 % (32-36); MEAN CORPUSCULAR VOLUME 87 fL (79.0-98.0); MONOCYTES # (AUTO) 1.1 K/uL (0.0-1.0); MONOCYTES % (AUTO) 9.4 % (1.7-9.3); NEUTROPHILS # (AUTO) 8.8 K/uL (1.8-7.7); NEUTROPHILS % (AUTO) 74.4 % (40.0-70.0); PLATELET COUNT (AUTO) 109 K/uL (130-430); RED BLOOD CELL COUNT(AUTO) 2.69 MIL/uL (4.2-6.2); RED CELL DISTRIBUTION WIDTH 15.2 % (9.0-15.0); WHITE BLOOD COUNT (AUTO) 11.8 K/uL (4.8-10.8)
--- NOTE | 2022-04-30 07:40 | NUR ---
Report received from Kurtis COREAS. Labs drawn Awaiting for results. Patient is a/o x4, vs stable, no sign of distress. Assuming care at this time.
[2022-04-30 07:45] VITALS: BP_SYST 115
--- NOTE | 2022-04-30 07:56 | NUR ---
Spoke to Dr. Eisenberg to update with pt current condition. Pt stable right now, denies any nausea, no audible bowel tones, but pt states he had passed gas. Awaiting for lab results.
[2022-04-30] MEDS: FOLIC ACID 1 MG TABLET PO SCH (08:53)
[2022-04-30] MEDS: LACTOBACILLUS RHAMNOSUS GG 1 CAP CAPSULE PO SCH ×2 (08:53→21:23)
[2022-04-30] MEDS: THIAMINE HCL 100 MG TABLET GT SCH (08:53)
[2022-04-30 11:25] VITALS: BP_SYST 124
--- NOTE | 2022-04-30 11:50 | NUR ---
Spoke to Dr. Cruz and updated md with pt current status. Pt stable at this time, no acute distress, pain well manage with Dilaudid 1 mg iv as needed, abdomen slightly distended with no audible bowel tones but per pt he has been passing gas, Hgb 8.0, ina drain with 40cc bloody output, adequate urine output draining via novoa. Orders received. Per MD, Patient may start with Clear liquid, miralax, iron and follow up chem panel.
[2022-04-30] MEDS ORDERED: POLYETHYLENE GLYCOL 3350, 17 GM/ POWD.PACK PO ONE (12:15)
[2022-04-30 12:35] LABS: BASOPHILS % (AUTO) 0.3 % (0.0-2.0); EOSINOPHILS # (AUTO) 0.1 K/uL (0.0-0.4); EOSINOPHILS % (AUTO) 0.8 % (0.0-4.0); HEMOGLOBIN 7.5 g/dL (14.0-18.0); LYMPHOCYTES # (AUTO) 2.1 K/uL (1.0-5.5); LYMPHOCYTES % (AUTO) 20.2 % (20.5-51.5); MEAN CORPUSCULAR HEMOGLOBIN 30 pg (27-31); MEAN CORPUSCULAR HGB CONC 34 % (32-36); MEAN CORPUSCULAR VOLUME 87 fL (79.0-98.0); MONOCYTES % (AUTO) 9.1 % (1.7-9.3); NEUTROPHILS # (AUTO) 7.3 K/uL (1.8-7.7); NEUTROPHILS % (AUTO) 69.6 % (40.0-70.0); PLATELET COUNT (AUTO) 107 K/uL (130-430); RED BLOOD CELL COUNT(AUTO) 2.52 MIL/uL (4.2-6.2); RED CELL DISTRIBUTION WIDTH 15.4 % (9.0-15.0); WHITE BLOOD COUNT (AUTO) 10.5 K/uL (4.8-10.8)
[2022-04-30 12:48] LABS: CALCIUM 7.5 mg/dL (8.4-11.0); CREATININE 1.84 mg/dL (0.55-1.30)
[2022-04-30 12:52] LABS: ALBUMIN 2.8 g/dL (3.4-4.8); HEMATOCRIT 21.9 % (36-54); TOTAL BILIRUBIN 0.7 mg/dL (0.0-1.0)
--- NOTE | 2022-04-30 12:52 | NUR ---
Call received from Zehra from lab. Hgb 7.5, Hct 21.9. Will call Dr. Eisenberg.
--- NOTE | 2022-04-30 13:03 | NUR ---
[id number] Eisenberg. Awaiting for call back. Dr. Eisenberg came and formed with Hgb 7.5, Hct 21.9, vital signs otherwise stable. Order received to transfuse 2PRBC.
[2022-04-30] MEDS: cefTRIAXone 1 GM in D5W 50 ML IV SCH ×2 (13:18→15:22)
[2022-04-30] MEDS: HYDROcodone/ACETAMIN 5-325 MG TAB (NORCO/ VICODIN) PO PRN ×2 (13:19→21:23)
[2022-04-30] MEDS: SOD FERRIC GLUC COMPLEX/SUC 125 MG in NS 100 ML IV SCH (13:40)
[2022-04-30] MEDS ORDERED: CHOLECALCIFEROL (VITAMIN D3) 2,000 UNIT TABLET PO ONE (15:00)
[2022-04-30 16:02] VITALS: BP_SYST 99
--- NOTE | 2022-04-30 16:32 | NUR ---
CONSULTATION PAGED PAGED BHANU HUMMEL AT [phone] LEFT A VOCIEMAIL FOR A CONSULTATION ORDERED BY HANNAH TRAN.
--- NOTE | 2022-04-30 16:40 | NUR ---
BT INITIATION: Consent signed per Austen Bernstein agreeing to administration of blood. Blood has been type and crossmatched. Blood sent from blood bank. Information on unit of blood checked against patient wristband at bedside by two nurses. All information matches. Patient or responsible republican informed of potential complications associated with blood transfusion. Informed of possible transfusion reaction symptoms. Aware of need to notify nurse at once of itching, shortness of breath, flushing, feeling of impending doom, or other symptoms not previously present. Vital signs taken within 5 minutes prior to initiation of transfusion. RN will remain with patient for first 15 minutes of transfusion at which time vital signs will be re-assessed.
[2022-04-30 19:32] LABS: BILIRUBIN,URINE NEGATIVE (NEGATIVE); BLOOD, URINE 1+ (NEGATIVE); CLARITY/URINE CLEAR (CLEAR); COLOR,URINE YELLOW (YELLOW); GLUCOSE,URINE NEGATIVE (NEGATIVE); KETONES,URINE NEGATIVE (NEGATIVE); LEUKOCYTE ESTERASE ,URINE NEGATIVE (NEGATIVE); NITRITE, URINE NEGATIVE (NEGATIVE); PROTEIN URINE NEGATIVE (NEGATIVE); UROBILINOGEN,URINE 0.2 (0.2-1.0)
[2022-04-30 19:48] LABS: BACTERIA,URINE FEW /HPF (None Seen)
[2022-04-30 20:40] VITALS: BP_SYST 125
--- NOTE | 2022-04-30 20:40 | NUR ---
2ND BLOOD TRANSFUSION STARTED. BLOOD VERIFIED WITH FLAVIA COREAS. DONOR #[id number] ARM BAND#[id number] VITAL SIGNS STABLE. PT HAS 18G R WRIST. WILL STAY WITH PT FOR FIRST 15 MINUTES.
[2022-04-30] MEDS: MULTIVITAMINS TAB 1 TABLET PO SCH (21:23)
[2022-04-30 22:25] LABS: URINE SODIUM, RANDOM 3 mmol/L (40-220)
[2022-05-01] VITALS: BP_SYST 132
--- NOTE | 2022-05-01 00:30 | NUR ---
PT RECEIVED BOTH UNITS OF BLOOD. PT DID NOT HAVE ANY ADVERSE REACTIONS. CBC TO BE DRAWN AFTER 1AM.
[2022-05-01] MEDS: cefTRIAXone 1 GM in D5W 50 ML IV SCH ×2 (01:40→13:35)
[2022-05-01] MEDS: HYDROmorphone 1 MG/ML INJ. CARTRIDGE IVP PRN ×2 (01:48→09:15)
[2022-05-01 01:59] LABS: BASOPHILS % (AUTO) 0.4 % (0.0-2.0); EOSINOPHILS # (AUTO) 0.1 K/uL (0.0-0.4); EOSINOPHILS % (AUTO) 1.5 % (0.0-4.0); HEMATOCRIT 27.1 % (36-54); HEMOGLOBIN 9.3 g/dL (14.0-18.0); LYMPHOCYTES # (AUTO) 1.7 K/uL (1.0-5.5); LYMPHOCYTES % (AUTO) 20.9 % (20.5-51.5); MEAN CORPUSCULAR HEMOGLOBIN 30 pg (27-31); MEAN CORPUSCULAR HGB CONC 34 % (32-36); MEAN CORPUSCULAR VOLUME 88 fL (79.0-98.0); MONOCYTES # (AUTO) 0.8 K/uL (0.0-1.0); MONOCYTES % (AUTO) 9.6 % (1.7-9.3); NEUTROPHILS # (AUTO) 5.4 K/uL (1.8-7.7); NEUTROPHILS % (AUTO) 67.6 % (40.0-70.0); PLATELET COUNT (AUTO) 99 K/uL (130-430); WHITE BLOOD COUNT (AUTO) 7.9 K/uL (4.8-10.8)
--- NOTE | 2022-05-01 05:00 | NUR ---
DR. PEREZ CALLED AND UPDATED ON PT CONDITION. DR STATED HE WOULD SEE THE PT TODAY. H/H CURRENTLY .06/10.
[2022-05-01] MEDS: D5/0.45 NS 1,000 ML IV SCH ×2 (06:12→13:50)
[2022-05-01] MEDS: HYDROcodone/ACETAMIN 5-325 MG TAB (NORCO/ VICODIN) PO PRN ×3 (06:50→20:09)
[2022-05-01 07:56] LABS: BASOPHILS % (AUTO) 0.7 % (0.0-2.0); EOSINOPHILS # (AUTO) 0.1 K/uL (0.0-0.4); EOSINOPHILS % (AUTO) 1.9 % (0.0-4.0); HEMATOCRIT 26.8 % (36-54); HEMOGLOBIN 9.3 g/dL (14.0-18.0); LYMPHOCYTES # (AUTO) 1.7 K/uL (1.0-5.5); LYMPHOCYTES % (AUTO) 24.7 % (20.5-51.5); MEAN CORPUSCULAR HEMOGLOBIN 30 pg (27-31); MEAN CORPUSCULAR HGB CONC 35 % (32-36); MEAN CORPUSCULAR VOLUME 87 fL (79.0-98.0); MONOCYTES # (AUTO) 0.6 K/uL (0.0-1.0); MONOCYTES % (AUTO) 9.2 % (1.7-9.3); NEUTROPHILS # (AUTO) 4.4 K/uL (1.8-7.7); NEUTROPHILS % (AUTO) 63.5 % (40.0-70.0); PLATELET COUNT (AUTO) 99 K/uL (130-430); RED BLOOD CELL COUNT(AUTO) 3.07 MIL/uL (4.2-6.2); RED CELL DISTRIBUTION WIDTH 14.7 % (9.0-15.0); WHITE BLOOD COUNT (AUTO) 6.8 K/uL (4.8-10.8)
[2022-05-01 08:00] VITALS: BP_SYST 132; BP_SYST 134
--- NOTE | 2022-05-01 08:28 | NUR ---
OPENING NOTES: PT IN BED A/O X4. NO S/S OF DISTRESS OR PAIN REPORTED. BREATHING IS EVEN AND UNLABORED ON RA. IV FLUIDS RUNNING. ALL NEEDS MET AT THIS TIME, SAFETY CHECKS MADE AND CALL LIGHT WITHIN REACH.
[2022-05-01] MEDS: POLYETHYLENE GLYCOL 3350, 17 GM/ POWD.PACK PO SCH (09:00)
[2022-05-01] MEDS: MULTIVITAMINS TAB 1 TABLET PO SCH ×2 (09:02→20:10)
[2022-05-01] MEDS: FOLIC ACID 1 MG TABLET PO SCH (09:02)
[2022-05-01] MEDS: CHOLECALCIFEROL (VITAMIN D3) 2,000 UNIT TABLET PO SCH (09:03)
[2022-05-01] MEDS: LACTOBACILLUS RHAMNOSUS GG 1 CAP CAPSULE PO SCH ×2 (09:04→20:08)
[2022-05-01 11:10] VITALS: BP_SYST 144
--- NOTE | 2022-05-01 12:10 | NUR ---
ROUNDS: NOTE PT LYING WITH EYES CLOSED. NO S/S OF DISTRESS OR PAIN REPORTED.BREATHING EVEN AND UNLABORED ON RA. NO S/S OF DISTRESS OR PAIN. BED ALARM ON AND SAFETY CHECKS IN PLACE. INSTRUCTED HOW TO USE CALL LIGHT AND PUT IN REACH.
[2022-05-01 12:43] LABS: BASOPHILS % (AUTO) 0.5 % (0.0-2.0); EOSINOPHILS # (AUTO) 0.2 K/uL (0.0-0.4); EOSINOPHILS % (AUTO) 2.5 % (0.0-4.0); HEMATOCRIT 25.4 % (36-54); HEMOGLOBIN 8.7 g/dL (14.0-18.0); LYMPHOCYTES # (AUTO) 1.4 K/uL (1.0-5.5); LYMPHOCYTES % (AUTO) 21.6 % (20.5-51.5); MEAN CORPUSCULAR HEMOGLOBIN 30 pg (27-31); MEAN CORPUSCULAR HGB CONC 34 % (32-36); MEAN CORPUSCULAR VOLUME 88 fL (79.0-98.0); MONOCYTES # (AUTO) 0.6 K/uL (0.0-1.0); MONOCYTES % (AUTO) 9.2 % (1.7-9.3); NEUTROPHILS # (AUTO) 4.3 K/uL (1.8-7.7); NEUTROPHILS % (AUTO) 66.2 % (40.0-70.0); PLATELET COUNT (AUTO) 103 K/uL (130-430); RED CELL DISTRIBUTION WIDTH 14.7 % (9.0-15.0); WHITE BLOOD COUNT (AUTO) 6.4 K/uL (4.8-10.8)
[2022-05-01] MEDS: SOD FERRIC GLUC COMPLEX/SUC 125 MG in NS 100 ML IV SCH (13:38)
[2022-05-01 13:44] LABS: CALCIUM 8.2 mg/dL (8.4-11.0); CREATININE 1.06 mg/dL (0.55-1.30)
[2022-05-01 15:16] VITALS: BP_SYST 141
--- NOTE | 2022-05-01 16:52 | NUR ---
MD: ORDER FROM DR ULRICH TO Tejal JOSEPH [id number] ON 05/01/22. REMOVED OPAL FROM PT.
[2022-05-01 18:30] LABS: BASOPHILS % (AUTO) 0.7 % (0.0-2.0); EOSINOPHILS # (AUTO) 0.2 K/uL (0.0-0.4); EOSINOPHILS % (AUTO) 2.7 % (0.0-4.0); HEMATOCRIT 27.9 % (36-54); HEMOGLOBIN 9.6 g/dL (14.0-18.0); LYMPHOCYTES # (AUTO) 1.3 K/uL (1.0-5.5); LYMPHOCYTES % (AUTO) 20.6 % (20.5-51.5); MEAN CORPUSCULAR HEMOGLOBIN 30 pg (27-31); MEAN CORPUSCULAR HGB CONC 34 % (32-36); MEAN CORPUSCULAR VOLUME 88 fL (79.0-98.0); MONOCYTES # (AUTO) 0.5 K/uL (0.0-1.0); MONOCYTES % (AUTO) 7.8 % (1.7-9.3); NEUTROPHILS # (AUTO) 4.3 K/uL (1.8-7.7); NEUTROPHILS % (AUTO) 68.2 % (40.0-70.0); PLATELET COUNT (AUTO) 112 K/uL (130-430); RED BLOOD CELL COUNT(AUTO) 3.18 MIL/uL (4.2-6.2); RED CELL DISTRIBUTION WIDTH 15.2 % (9.0-15.0); WHITE BLOOD COUNT (AUTO) 6.3 K/uL (4.8-10.8)
--- NOTE | 2022-05-01 19:28 | NUR ---
CLOSING NOTES: PT IN BED A/O X4. NO S/S OF DISTRESS OR PAIN REPORTED. BREATHING IS EVEN AND UNLABORED ON RA. ALL NEEDS MET AT THIS TIME, SAFETY CHECKS MADE AND CALL LIGHT WITHIN REACH.
--- NOTE | 2022-05-01 19:30 | NUR ---
OPENING NOTE PT LYING IN BED. BREATHING EVEN AND NONLABORED. NO S/S OF DISTRESS. COMPLAINED ABOUT ABD PAIN 08/24. GIVEN HYDROCODONE PRESCRIBED. VSS. SAFETY CHECKS IN PLACE. CALL LIGHT IN REACH. CONTINUE TO MONITOR.
[2022-05-01 20:00] VITALS: BP_SYST 117
[2022-05-02] VITALS: BP_SYST 128
--- NOTE | 2022-05-02 00:20 | NUR ---
ROUNDING NOTE PT LYING IN BED. BREATHING EVEN AND NONLABORED. VSS. REPORTED ABD PAIN 09/23. ASSISTED REPOSITION FOR COMFORT MEASURE. INFORMED NEXT PAIN MEDICATION AVAILABLE AFTER 0200. PT STATED HE CAN WAIT. SAFETY CHECKS IN PLACE. CALL LIGHT IN REACH. CONTINUE TO MONITOR
[2022-05-02] MEDS: cefTRIAXone 1 GM in D5W 50 ML IV SCH ×2 (01:52→14:29)
[2022-05-02] MEDS: D5/0.45 NS 1,000 ML IV SCH (01:52)
--- NOTE | 2022-05-02 03:25 | NUR ---
ROUNDING NOTE PT LYING BED AND ASKED TO REMOVE SCD TO GO TO BATHROOM. REMOVED THEM AND ASSISTED HIM TO BATHROOM. PT REPORTED ABD PAIN 08/24. GIVEN NORCO TO RELIEVE THE PAIN. DRAIN FROM THE SURGICAL INCISION 95mL AND DRESSING CHANGED. PT REFUSED TO PUT SCD BACK ON. CALL LIGHT IN REACH AND SAFETY CHECKS IN PLACE.
[2022-05-02] MEDS: HYDROcodone/ACETAMIN 5-325 MG TAB (NORCO/ VICODIN) PO PRN ×3 (03:45→19:55)
--- NOTE | 2022-05-02 07:07 | NUR ---
CLOSING NOTE PT LYING IN BED AND EYES CLOSED. BREATHING EVEN AND NONLABORED ON RA. NO S/S OF DISTRESS. VSS. SAFETY CHECKS IN PLACE. CALL LIGHT IN REACH. ENDORSED TO DAY SHIFT NURSE.
--- NOTE | 2022-05-02 07:59 | NUR ---
OPENING NOTES: PT LYING BED A/O X4. BREATHING EVEN AND NONLABORED ON RA. NO S/S OF ACUTE DISTRESS OR PAIN. ALL NEEDS MET AT THIS TIME, CALL LIGHT IN REACH AND SAFETY CHECKS IN PLACE.
[2022-05-02 08:00] VITALS: BP_SYST 135
[2022-05-02 08:29] LABS: BASOPHILS % (AUTO) 0.5 % (0.0-2.0); EOSINOPHILS # (AUTO) 0.3 K/uL (0.0-0.4); EOSINOPHILS % (AUTO) 3.9 % (0.0-4.0); HEMATOCRIT 27.8 % (36-54); LYMPHOCYTES # (AUTO) 1.3 K/uL (1.0-5.5); LYMPHOCYTES % (AUTO) 20.7 % (20.5-51.5); MEAN CORPUSCULAR HEMOGLOBIN 31 pg (27-31); MEAN CORPUSCULAR HGB CONC 36 % (32-36); MEAN CORPUSCULAR VOLUME 86 fL (79.0-98.0); MONOCYTES # (AUTO) 0.5 K/uL (0.0-1.0); MONOCYTES % (AUTO) 7.7 % (1.7-9.3); NEUTROPHILS # (AUTO) 4.3 K/uL (1.8-7.7); NEUTROPHILS % (AUTO) 67.2 % (40.0-70.0); PLATELET COUNT (AUTO) 118 K/uL (130-430); RED BLOOD CELL COUNT(AUTO) 3.25 MIL/uL (4.2-6.2); RED CELL DISTRIBUTION WIDTH 14.9 % (9.0-15.0); WHITE BLOOD COUNT (AUTO) 6.4 K/uL (4.8-10.8)
[2022-05-02 08:39] LABS: ALBUMIN 3.1 g/dL (3.4-4.8); CALCIUM 8.6 mg/dL (8.4-11.0); CREATININE 1.07 mg/dL (0.55-1.30); TOTAL BILIRUBIN 0.9 mg/dL (0.0-1.0)
[2022-05-02] MEDS: LACTOBACILLUS RHAMNOSUS GG 1 CAP CAPSULE PO SCH ×2 (08:47→21:23)
[2022-05-02] MEDS: MULTIVITAMINS TAB 1 TABLET PO SCH ×2 (08:48→21:23)
[2022-05-02] MEDS: POLYETHYLENE GLYCOL 3350, 17 GM/ POWD.PACK PO SCH (08:48)
[2022-05-02] MEDS: CHOLECALCIFEROL (VITAMIN D3) 2,000 UNIT TABLET PO SCH (08:48)
[2022-05-02] MEDS: FOLIC ACID 1 MG TABLET PO SCH (08:48)
[2022-05-02] MEDS: THIAMINE HCL 100 MG TABLET PO SCH (08:48)
--- NOTE | 2022-05-02 08:50 | NUR ---
: DR ULRICH CALLED FOR AN UPDATE ON THE PT. HE SAID TO SET THE ALBERTA DRAIN TO JUST DRAIN AND NOT SUCTION AND HE SAID TO DC THE D5 1/2 NS @ 70ML/HR. TOLD ME TO TO ASK DR SANTANA ABOUT DC OF ROCEPHIN THE PT'S WBC IS 6.3.
--- NOTE | 2022-05-02 10:19 | NUR ---
: CALLED DR SANTANA ABOUT CONTINUING ROCEPHIN THE PT'S WBC IS 6.4 OF 05/02. HE SAID HE WANTS TO CONTINUE IT.
[2022-05-02 11:25] VITALS: BP_SYST 131
[2022-05-02] MEDS: SOD FERRIC GLUC COMPLEX/SUC 125 MG in NS 100 ML IV SCH (12:56)
--- NOTE | 2022-05-02 13:19 | NUR ---
NEW PIV TO LEFT HAND 22G INITIATED. PT C/O DISCOMFORT TO THE PREVIOUS IV SITE. PT TOLERATED WELL. FLUSHED WITH 10CC NS, GOOD BLOOD RETURN NOTED. NO C/O PAIN AT THE SITE. WILL CONT TO MONITOR
[2022-05-02 13:24] LABS: EOSINOPHILS # (AUTO) 0.3 K/uL (0.0-0.4); HEMOGLOBIN 9.5 g/dL (14.0-18.0); LYMPHOCYTES # (AUTO) 1.3 K/uL (1.0-5.5); MEAN CORPUSCULAR HGB CONC 35 % (32-36); MONOCYTES # (AUTO) 0.5 K/uL (0.0-1.0); NEUTROPHILS # (AUTO) 4.3 K/uL (1.8-7.7); WHITE BLOOD COUNT (AUTO) 6.4 K/uL (4.8-10.8)
[2022-05-02 13:30] LABS: BASOPHILS % (AUTO) 0.5 % (0.0-2.0); EOSINOPHILS % (AUTO) 4.6 % (0.0-4.0); HEMATOCRIT 26.9 % (36-54); LYMPHOCYTES % (AUTO) 20.1 % (20.5-51.5); MEAN CORPUSCULAR HEMOGLOBIN 30 pg (27-31); MEAN CORPUSCULAR VOLUME 86 fL (79.0-98.0); MONOCYTES % (AUTO) 7.4 % (1.7-9.3); NEUTROPHILS % (AUTO) 67.4 % (40.0-70.0); PLATELET COUNT (AUTO) 116 K/uL (130-430); RED BLOOD CELL COUNT(AUTO) 3.14 MIL/uL (4.2-6.2); RED CELL DISTRIBUTION WIDTH 14.7 % (9.0-15.0)
--- NOTE | 2022-05-02 14:00 | NUR ---
ROUNDS: PT IN BED VISITING WITH FAMILY. NO S/S OR DISTRESS OR PAIN REPORTED. BREATHING IS EVEN AND UNLABORED ON RA. ALL NEEDS MET AT THIS TIME, SAFETY CHECKS MADE AND CALL LIGHT WITHIN REACH.
[2022-05-02] MEDS ORDERED: TEMAZEPAM 15 MG CAPSULE PO PRN (14:30)
[2022-05-02 15:25] VITALS: BP_SYST 131
--- NOTE | 2022-05-02 16:59 | NUR ---
MD: DR ULRICH BEDSIDE WITH THE PT. EMPTIED THE ALBERTA DRAINS AND SET THE DRAINS TO DRAIN NOT SUCTION. NOTED THE OUTPUT IN THE ASSESSMENT INTERVENTION.
--- NOTE | 2022-05-02 18:06 | NUR ---
Dietitian Recommendations * Continue GI Soft Diet * Encourage PO intakes during meal times. * If tolerance improves, consider Regular diet to increase PO intake. LP, MS, RD Please refer to Nutrition Assessment for details.
--- NOTE | 2022-05-02 18:14 | NUR ---
CLOSING NOTES: PT IN BED FEEDING HIMSELF DINNER. NO S/S OF DISTRESS OR PAIN REPORTED. IV RUNNING FLUIDS. BREATHING IS EVEN AND UNLABORED ON RA. ALBERTA DRAIN EMPTIED AND SET TO DRAIN NOT SUCTION PER MD. ALL NEEDS MET AT THIS TIME, SAFETY CHECKS MADE AND CALL LIGHT WITHIN REACH. WILL ENDORSE TO GRAIN SHOVELER.
--- NOTE | 2022-05-02 19:20 | NUR ---
CHANGE OF SHIFT; endorsed by day shift nurse S/P lap appy 04/28. no distress, wanting pain med and will check. call light within reach.
--- NOTE | 2022-05-02 19:55 | NUR ---
NOTES: pain medication for c/o post op abdominal pain. abdominal dressing in place, abdomen distended but soft with J haney x1. IV lock on left hand. moves all extremities. tolerating diet. call light within reach.
[2022-05-02 20:00] VITALS: BP_SYST 125
[2022-05-02 21:07] LABS: BASOPHILS % (AUTO) 0.3 % (0.0-2.0); EOSINOPHILS # (AUTO) 0.3 K/uL (0.0-0.4); EOSINOPHILS % (AUTO) 4.7 % (0.0-4.0); HEMATOCRIT 26.7 % (36-54); HEMOGLOBIN 9.4 g/dL (14.0-18.0); LYMPHOCYTES % (AUTO) 17.4 % (20.5-51.5); MEAN CORPUSCULAR HEMOGLOBIN 31 pg (27-31); MEAN CORPUSCULAR HGB CONC 35 % (32-36); MEAN CORPUSCULAR VOLUME 87 fL (79.0-98.0); MONOCYTES # (AUTO) 0.5 K/uL (0.0-1.0); MONOCYTES % (AUTO) 8.2 % (1.7-9.3); NEUTROPHILS % (AUTO) 69.4 % (40.0-70.0); PLATELET COUNT (AUTO) 115 K/uL (130-430); RED BLOOD CELL COUNT(AUTO) 3.08 MIL/uL (4.2-6.2); RED CELL DISTRIBUTION WIDTH 14.8 % (9.0-15.0); WHITE BLOOD COUNT (AUTO) 5.8 K/uL (4.8-10.8)
--- NOTE | 2022-05-02 21:30 | NUR ---
NOTES: pt. noted relief and sleeping at the moment.
[2022-05-03] VITALS: BP_SYST 134
--- NOTE | 2022-05-03 00:15 | NUR ---
NOTES: been dozing on and off. no complaints.
[2022-05-03] MEDS: HYDROcodone/ACETAMIN 5-325 MG TAB (NORCO/ VICODIN) PO PRN ×4 (02:03→20:42)
[2022-05-03] MEDS: cefTRIAXone 1 GM in D5W 50 ML IV SCH ×2 (02:05→15:13)
--- NOTE | 2022-05-03 02:10 | NUR ---
NOTES: due pain medication given po for c/o post op abdominal pain.loer abdomen dressing changed with J haney side with old dried blood. drained bloody drainage. pt. voided per urinal.
--- NOTE | 2022-05-03 04:00 | NUR ---
NOTES: pt. checked ,sleeping. condition observed.
--- NOTE | 2022-05-03 06:45 | NUR ---
CLOSING NOTES; pt. already awake, starting to have pain but not due yet. IV site patent. HOB elevated. abdominal dressing intact with J haney. for further observation w. will endorse to incoming shift.
[2022-05-03 07:58] LABS: BASOPHILS % (AUTO) 0.5 % (0.0-2.0); EOSINOPHILS # (AUTO) 0.4 K/uL (0.0-0.4); EOSINOPHILS % (AUTO) 5.2 % (0.0-4.0); HEMOGLOBIN 9.9 g/dL (14.0-18.0); LYMPHOCYTES # (AUTO) 1.6 K/uL (1.0-5.5); LYMPHOCYTES % (AUTO) 22.9 % (20.5-51.5); MEAN CORPUSCULAR HEMOGLOBIN 30 pg (27-31); MEAN CORPUSCULAR HGB CONC 35 % (32-36); MEAN CORPUSCULAR VOLUME 85 fL (79.0-98.0); MONOCYTES # (AUTO) 0.6 K/uL (0.0-1.0); MONOCYTES % (AUTO) 8.6 % (1.7-9.3); NEUTROPHILS # (AUTO) 4.5 K/uL (1.8-7.7); NEUTROPHILS % (AUTO) 62.8 % (40.0-70.0); PLATELET COUNT (AUTO) 131 K/uL (130-430); RED BLOOD CELL COUNT(AUTO) 3.28 MIL/uL (4.2-6.2); RED CELL DISTRIBUTION WIDTH 14.6 % (9.0-15.0); WHITE BLOOD COUNT (AUTO) 7.2 K/uL (4.8-10.8)
[2022-05-03 08:00] VITALS: BP_SYST 155
[2022-05-03 08:16] LABS: ALBUMIN 3.1 g/dL (3.4-4.8); CALCIUM 8.8 mg/dL (8.4-11.0); CREATININE 1.01 mg/dL (0.55-1.30)
[2022-05-03] MEDS: CHOLECALCIFEROL (VITAMIN D3) 2,000 UNIT TABLET PO SCH (08:41)
[2022-05-03] MEDS: POLYETHYLENE GLYCOL 3350, 17 GM/ POWD.PACK PO SCH (08:41)
[2022-05-03] MEDS: MULTIVITAMINS TAB 1 TABLET PO SCH ×2 (08:41→20:41)
[2022-05-03] MEDS: FOLIC ACID 1 MG TABLET PO SCH (08:41)
[2022-05-03] MEDS: THIAMINE HCL 100 MG TABLET PO SCH (08:41)
[2022-05-03] MEDS: LACTOBACILLUS RHAMNOSUS GG 1 CAP CAPSULE PO SCH ×2 (10:05→20:41)
[2022-05-03 12:00] VITALS: BP_SYST 152
[2022-05-03] MEDS: SOD FERRIC GLUC COMPLEX/SUC 125 MG in NS 100 ML IV SCH (13:40)
[2022-05-03 16:00] VITALS: BP_SYST 132
--- NOTE | 2022-05-03 19:20 | NUR ---
pt a&o, c/o pain - given norco as needed. ambulatory. ALBERTA output 30ml bloody drainage. dressings c/d/i.
[2022-05-03 20:13] VITALS: BP_SYST 132
[2022-05-04] MEDS: HYDROcodone/ACETAMIN 5-325 MG TAB (NORCO/ VICODIN) PO PRN ×4 (02:01→20:31)
[2022-05-04] MEDS: cefTRIAXone 1 GM in D5W 50 ML IV SCH ×2 (02:09→14:48)
[2022-05-04 02:16] VITALS: BP_SYST 126
[2022-05-04 04:28] VITALS: BP_SYST 140
[2022-05-04 08:00] VITALS: BP_SYST 159
[2022-05-04] MEDS: POLYETHYLENE GLYCOL 3350, 17 GM/ POWD.PACK PO SCH (09:00)
[2022-05-04] MEDS: THIAMINE HCL 100 MG TABLET PO SCH (09:04)
[2022-05-04] MEDS: CHOLECALCIFEROL (VITAMIN D3) 2,000 UNIT TABLET PO SCH (09:04)
[2022-05-04] MEDS: LACTOBACILLUS RHAMNOSUS GG 1 CAP CAPSULE PO SCH ×2 (09:05→20:30)
[2022-05-04] MEDS: FOLIC ACID 1 MG TABLET PO SCH (09:05)
[2022-05-04] MEDS: MULTIVITAMINS TAB 1 TABLET PO SCH ×2 (09:05→20:30)
[2022-05-04 09:22] LABS: BASOPHILS % (AUTO) 0.5 % (0.0-2.0); EOSINOPHILS # (AUTO) 0.3 K/uL (0.0-0.4); EOSINOPHILS % (AUTO) 3.9 % (0.0-4.0); HEMATOCRIT 32.2 % (36-54); HEMOGLOBIN 10.9 g/dL (14.0-18.0); LYMPHOCYTES # (AUTO) 1.7 K/uL (1.0-5.5); LYMPHOCYTES % (AUTO) 19.5 % (20.5-51.5); MEAN CORPUSCULAR HEMOGLOBIN 30 pg (27-31); MEAN CORPUSCULAR HGB CONC 34 % (32-36); MEAN CORPUSCULAR VOLUME 88 fL (79.0-98.0); MONOCYTES # (AUTO) 0.7 K/uL (0.0-1.0); NEUTROPHILS # (AUTO) 6.1 K/uL (1.8-7.7); NEUTROPHILS % (AUTO) 68.1 % (40.0-70.0); PLATELET COUNT (AUTO) 156 K/uL (130-430); RED BLOOD CELL COUNT(AUTO) 3.66 MIL/uL (4.2-6.2); RED CELL DISTRIBUTION WIDTH 15.1 % (9.0-15.0); WHITE BLOOD COUNT (AUTO) 8.9 K/uL (4.8-10.8)
[2022-05-04 12:00] VITALS: BP_SYST 149
[2022-05-04] MEDS: SOD FERRIC GLUC COMPLEX/SUC 125 MG in NS 100 ML IV SCH (12:42)
[2022-05-04 14:02] LABS: CALCIUM 9.1 mg/dL (8.4-11.0); CREATININE 1.19 mg/dL (0.55-1.30)
[2022-05-04] MEDS ORDERED: Thiamine Hcl PO (16:08)
[2022-05-04] MEDS ORDERED: MULT400T13 PO (16:08)
[2022-05-04] MEDS ORDERED: VITD2000 PO (16:08)
[2022-05-04] MEDS ORDERED: LACT1CAP57 PO (16:08)
[2022-05-04] MEDS ORDERED: FOLI-43 PO (16:08)
--- NOTE | 2022-05-04 19:11 | NUR ---
pt a&o, ambulatory. to be discharged once cleared by surgery - awaiting for ina drain to be removed. prescriptions in chart.
--- NOTE | 2022-05-04 19:45 | NUR ---
Opening note Received patient awake, resting in bed, watching media on his tablet/phone. No distress and nonlabored breathing on room air. He reports moderate pain to abdomen and also to RFA at the location of previous IV. The RFA is swollen, warm to touch and tender. He said it has been like this for days. IV to left hand is SL and patent. Bed is locked in lowest position, side rails up 2x and call light w/in reach... though he did report that "call light does not work, they don't answer , not loud, not clear".
[2022-05-04 20:00] VITALS: BP_SYST 137
--- NOTE | 2022-05-04 20:31 | NUR ---
scheduled meds, pain med Patient reporting moderate pain to abdomen and also to right forearm - at site of previous IV site. Administered [place] and reviewed side effects; he verbalized understanding and reports BM today. Scheduled meds given.
--- NOTE | 2022-05-04 20:40 | NUR ---
New gown and linens Patient was provided with CHG bath to upper body (arms, abdomen, back). He sat on chair while bed linen was changed. He returned to bed and 30ml of serosanguinous drainage emptied from ALBERTA. Right arm resting on pillow and applied ice pack. estefanía.
[2022-05-05 01:22] VITALS: BP_SYST 129
[2022-05-05] MEDS: cefTRIAXone 1 GM in D5W 50 ML IV SCH ×2 (02:29→14:39)
[2022-05-05] MEDS: HYDROcodone/ACETAMIN 5-325 MG TAB (NORCO/ VICODIN) PO PRN ×3 (02:32→16:45)
--- NOTE | 2022-05-05 02:32 | NUR ---
Rocephin and pain med Patient sleeping (resting w/eyes closed), tapped on bed to awake him for scheduled antibiotic. Scheduled antibiotic, Rocephin, administered, infusing well. Patient reports moderated pain to abdomen and [place] given as ordered. Once again he informs me that he also has pain to RFA. He states pain started three days ago, when Ferlicit was infusing. I informed I wound notify .
--- NOTE | 2022-05-05 06:14 | NUR ---
Dr. Eisenberg Called and s/w Dr. Eisenberg. Informed patient has been c/o pain to RFA after IV infiltrated when he was receiving Ferlicet IV (patient reports this was three days ago). Dr. Eisenberg reports he had not been informed. Received orders for venous US doppler of LIZ NAIR
[2022-05-05 08:00] VITALS: BP_SYST 153
[2022-05-05] MEDS: MULTIVITAMINS TAB 1 TABLET PO SCH (08:42)
[2022-05-05] MEDS: CHOLECALCIFEROL (VITAMIN D3) 2,000 UNIT TABLET PO SCH (08:43)
[2022-05-05] MEDS: THIAMINE HCL 100 MG TABLET PO SCH (08:43)
[2022-05-05] MEDS: FOLIC ACID 1 MG TABLET PO SCH (08:43)
[2022-05-05] MEDS: POLYETHYLENE GLYCOL 3350, 17 GM/ POWD.PACK PO SCH (08:43)
[2022-05-05] MEDS: LACTOBACILLUS RHAMNOSUS GG 1 CAP CAPSULE PO SCH (08:43)
[2022-05-05 11:42] VITALS: BP_SYST 130
[2022-05-05 17:09] VITALS: BP_SYST 139
[2022-05-05] MEDS ORDERED: AMOXICILLIN/POTASSIUM CLAV 875 MG TABLET PO ONE (17:45)
--- NOTE | 2022-05-05 18:15 | NUR ---
pt discharged to home with mother. vss. d/c instruction given - f/u w/ surgeon to have ina drain removed. prescriptions sent with patient.
[2022-05-06] MEDS ORDERED: AMOXICILLIN/POTASSIUM CLAV 875 MG TABLET PO SCH (09:00)
== END 2022-05-05 18:00 | disposition home or self-care (01) | DRG 234 ==
LOC: SED 05:36 → SMU 08:46 → STU 04-29 17:29 → SMU 05-02 18:26
PROVIDERS: ADMIT Internal Medicine; ATTEND Internal Medicine
PROC: 0DTJ4ZZ Resection of Appendix, Percutaneous Endoscopic Approach (ICD-10-PCS; principal; 2022-04-28 10:31)
PROC: 30233N1 Transfusion of Nonautologous Red Blood Cells into Peripheral Vein, Percutaneous Approach (ICD-10-PCS; 2022-04-30)
DX: K35.80 Unspecified acute appendicitis (principal); N17.0 Acute kidney failure with tubular necrosis; D62 Acute posthemorrhagic anemia; I80.8 Phlebitis and thrombophlebitis of other sites; M10.9 Gout, unspecified; I10 Essential (primary) hypertension; E87.5 Hyperkalemia; Z20.822 Contact with and (suspected) exposure to COVID-19; Z90.49 Acquired absence of other specified parts of digestive tract
CPT/HCPCS: 36415; 71045; 76376; 76770; 80048; 80053; 80307; 81000; 82570; 83605; 83690; 84302; 85025; 85610-TC; 85730-TC; 86886; 86900; 86901; 86920; 87040; 87081; 88304; 93005; 93971; 96361; 96365; 96375; 99291; C1727; G0378; J0330; J0690; J0692; J0696; J1100; J1170; J2001; J2270; J2370; J2405; J2543; J2704; J2710; J2765; J2916; J3010; J3465; J3490; J7030; J7060; J7120; P9021

== ENCOUNTER 2022-12-01 21:53 | Emergency (ER) | payer MEDICAID ==
[~2022-12-01] VITALS: Ht 188 cm; Wt 113.4 kg
[~2022-12-01 21:53] MED LIST changes: +FOLI-43 PO; -HYDR-3917 PO; -IBUP-1971 PO; -INDO-12 PO; +LACT1CAP57 PO; -LACT1CAP61 PO; +MULT400T13 PO; -ROCPM1 IV; -TRAM50TA2 PO; +Thiamine Hcl PO; +VITD2000 PO
[2022-12-01 22:09] VITALS: BP_SYST 144; PULSE 82; RESP 20; TEMP 98.4; O2SAT 94
[2022-12-01 22:31] VITALS: TEMP 97.1
[2022-12-01 23:17] LABS: ANION GAP 7 (5-15); CALCIUM 8.5 mg/dL (8.4-11.0); CARBON DIOXIDE 28 mmol/L (23-29); CHLORIDE 99 mmol/L (98-107); CREATININE 1.23 mg/dL (0.55-1.30); GFR AFRICAN AMERICAN 79 mL/min (>90); GLUCOSE 152 mg/dL (74-106); POTASSIUM 3.8 mmol/L (3.5-5.1); SODIUM SERUM 134 mmol/L (136-145); UREA NITROGEN, BLOOD 8 mg/dL (8-21)
[2022-12-01 23:19] LABS: BASOPHILS % (AUTO) 0.5 % (0.0-2.0); EOSINOPHILS # (AUTO) 0.5 K/uL (0.0-0.4); HEMATOCRIT 39.9 % (36-54); HEMOGLOBIN 13.5 g/dL (14.0-18.0); LYMPHOCYTES # (AUTO) 3.5 K/uL (1.0-5.5); LYMPHOCYTES % (AUTO) 38.5 % (20.5-51.5); MEAN CORPUSCULAR HEMOGLOBIN 29 pg (27-31); MEAN CORPUSCULAR HGB CONC 34 % (32-36); MEAN CORPUSCULAR VOLUME 86 fL (79.0-98.0); MONOCYTES # (AUTO) 0.8 K/uL (0.0-1.0); MONOCYTES % (AUTO) 8.6 % (1.7-9.3); NEUTROPHILS # (AUTO) 4.2 K/uL (1.8-7.7); NEUTROPHILS % (AUTO) 46.4 % (40.0-70.0); PLATELET COUNT (AUTO) 127 K/uL (130-430); RED BLOOD CELL COUNT(AUTO) 4.64 MIL/uL (4.2-6.2); RED CELL DISTRIBUTION WIDTH 15.8 % (9.0-15.0); WHITE BLOOD COUNT (AUTO) 9.1 K/uL (4.8-10.8)
[2022-12-01 23:24] LABS: ALANINE AMINOTRANSFERASE 24 U/L (12-78); ALBUMIN 3.4 g/dL (3.4-4.8); ASPARTATE AMINOTRANSFERASE 30 U/L (10-37); LIPASE 168 U/L (73-393); TOTAL BILIRUBIN 0.4 mg/dL (0.0-1.0); TOTAL PROTEIN, SERUM 7.2 g/dL (6.4-8.3)
[2022-12-01 23:27] LABS: GFR NON AFRICAN-AMERICAN 66 mL/min (>90)
[2022-12-02] MEDS ORDERED: FAMOTIDINE 20 MG TABLET PO ONE
[2022-12-02] MEDS ORDERED: MAG HYDROX/AL HYDROX/SIMETH 30 ML, DICYCLOMINE HCL 20 MG, LIDOCAINE VISCOUS 2% 15ML (PO... PO ONE ×3
[2022-12-02] MEDS ORDERED: ONDANSETRON 4 MG ODT TAB PO ONE
[2022-12-02] MEDS ORDERED: FAMO-132 PO (00:11)
[2022-12-02] MEDS ORDERED: ONDA-8 TL (00:11)
[2022-12-02 00:44] VITALS: BP_SYST 129; PULSE 91; RESP 21; O2SAT 92
== END 2022-12-02 00:44 | disposition home or self-care (01) ==
LOC: SED 21:53
DX: K29.70 Gastritis, unspecified, without bleeding (principal); F10.129 Alcohol abuse with intoxication, unspecified; R06.02 Shortness of breath; R10.9 Unspecified abdominal pain; R11.0 Nausea; I10 Essential (primary) hypertension; Z79.899 Other long term (current) drug therapy; Y90.6 Blood alcohol level of 120-199 mg/100 ml
CPT/HCPCS: 99285; 80053; 83880; 83690; 85025; 84484; 36415; 93005; 71045; Q0162; J2001

== ENCOUNTER 2023-03-27 10:54 | Emergency (ER) | payer MEDICAID ==
[~2023-03-27] VITALS: Ht 188 cm; Wt 110.7 kg
[~2023-03-27 10:54] MED LIST changes: +FAMO-132 PO; +ONDA-8 TL
[2023-03-27 10:55] VITALS: BP_SYST 128; PULSE 84; RESP 20; TEMP 97; O2SAT 95
[2023-03-27] MEDS ORDERED: ALBMDI INH (12:06)
[2023-03-27] MEDS ORDERED: BENZ100C92 PO (12:06)
[2023-03-27] MEDS ORDERED: GUAI-723 PO (12:06)
[2023-03-27] MEDS ORDERED: PRED20TA PO (12:06)
[2023-03-27 12:12] LABS: INFLUENZA TYPE B NEGATIVE (NEGATIVE)
[2023-03-27 12:16] LABS: COVID19 ANTIGEN SOFIA FIA POSITIVE (NEGATIVE); INFLUENZA TYPE A Positive (NEGATIVE)
== END 2023-03-27 12:30 | disposition home or self-care (01) ==
LOC: SED 10:54
DX: U07.1 COVID-19 (principal); J10.1 Influenza due to other identified influenza virus with other respiratory manifestations; J20.9 Acute bronchitis, unspecified; R05.9 Cough, unspecified; R09.81 Nasal congestion; R09.89 Other specified symptoms and signs involving the circulatory and respiratory systems; I10 Essential (primary) hypertension; Z79.899 Other long term (current) drug therapy
CPT/HCPCS: 36415; 71046-TC; 99284